=== PATIENT | male | born 1990 | race Caucasian/White ===

== ENCOUNTER 2023-01-23 09:24 | Emergency (ER) | payer OTHER ==
[~2023-01-23] VITALS: Ht 185.4 cm; Wt 122.7 kg
[2023-01-23] MEDS ORDERED: muscle relaxer PO (09:28)
[2023-01-23 09:30] VITALS: BP 148/108; PULSE 110; RESP 19; TEMP 98.6
[2023-01-23] MEDS ORDERED: ACETAMINOPHEN 500 MG TABLET PO ONE (10:00)
[2023-01-23] MEDS ORDERED: METHOCARBAMOL 500 MG TABLET PO ONE (10:00)
[2023-01-23] MEDS ORDERED: KETOROLAC TROMETHAMINE 60 MG/2 ML VIAL IM ONE (10:00)
[2023-01-23] MEDS ORDERED: METH-659 PO (10:52)
[2023-01-23] MEDS ORDERED: IBUP-1554 PO (10:52)
[2023-01-23] MEDS ORDERED: ACET-2080 PO (10:52)
== END 2023-01-23 11:13 | disposition home or self-care (01) ==
LOC: EMS 09:27
DX: S39.012A Strain of muscle, fascia and tendon of lower back, initial encounter (principal); Z96.659 Presence of unspecified artificial knee joint; X58.XXXA Exposure to other specified factors, initial encounter; Y93.89 Activity, other specified; Y92.89 Other specified places as the place of occurrence of the external cause; Y99.8 Other external cause status
CPT/HCPCS: 99283; 96372; J1885